=== PATIENT | male | born 1960 | race Caucasian/White ===

== ENCOUNTER 2017-01-22 05:55 | Emergency (ER) | payer BC, OTHER ==
[~2017-01-22] VITALS: Ht 177.8 cm; Wt 83.0 kg
[~2017-01-22 05:55] MED LIST: B/P MED; CHOLESTEROL MED; HIV MED; VALT500T PO
[2017-01-22 05:57] VITALS: BP 135/69; PULSE 68; RESP 16; TEMP 97.6; O2SAT 99
[2017-01-22] MEDS ORDERED: DICL75TA PO (06:20)
[2017-01-22] MEDS ORDERED: BACL10TA PO (06:20)
[2017-01-22] MEDS ORDERED: LIDO1PAD52 TOPICAL (06:20)
[2017-01-22] MEDS ORDERED: VALT500T PO (06:23)
[2017-01-22] MEDS ORDERED: ATOR10TA15 PO (06:23)
[2017-01-22] MEDS ORDERED: NAPR500T PO (06:23)
--- NOTE | 2017-01-22 06:24 | PD ---
HPI Chief Complaint: Back/ Neck Pain or Injury Time Seen by Provider: 06:05 Travel History International Travel<30 days: No Contact w/Intl Traveler<30days: No Traveled to known affect area: No History of Present Illness HPI 56-year-old male presents for evaluation of lower back pain. The patient reports chronic lower back pain secondary to herniated disc, muscle spasms. He has had this issue for 5-6 years. He has occasional muscle spasm flareups. He reports over the past 6 days he has been having muscle spasms in his lower back. He typically tries to treat this with physical therapy, at home TENS unit /[facility] administration. He went to physical therapy 3 days ago and his symptoms have persisted. He denies any trauma or heavy lifting. He denies any bowel or bladder incontinence, saddle anesthesia, radicular symptoms. He has no other complaints at this time. FOR[facility]LY [facility] Past Medical History Hypertension: Yes Triglycerides - High: Yes Tetanus Vaccination: < 5 Years Influenza Vaccination: No Social History Alcohol Use: Yes ([facility]) Tobacco Use: No Substance Use: No Allergies-Medications (Allergen,Severity, Reaction): Coded Allergies: Penicillin (Verified Allergy, Severe, 01/22/17) Reported Meds & Prescriptions Reported Meds & Active Scripts Active Reported [Hiv Med] DAILY [Cholesterol Med] DAILY [B/P Med] DAILY Valtrex (Valacyclovir HCl) 500 Mg Tab 500 Mg PO DAILY Review of Systems Except as stated in HPI: all other systems reviewed are Neg Physical Exam Narrative GENERAL: Well-developed well-nourished male in no acute distress sitting upright in hospital bed vital signs reviewed SKIN: Warm and dry. No rash no bruising or soft tissue swelling HEAD: Atraumatic. Normocephalic. EYES: Pupils equal and round. No scleral icterus. No injection or drainage. ENT: No nasal bleeding or discharge. Mucous membranes pink and moist. NECK: Trachea midline. No JVD. CARDIOVASCULAR: Regular rate and rhythm. No murmur appreciated. RESPIRATORY: No accessory muscle use. Clear to auscultation. Breath sounds equal bilaterally. GASTROINTESTINAL: Abdomen soft, non-tender, nondistended. Hepatic and splenic margins not palpable. MUSCULOSKELETAL: No obvious deformities. 5 out of 5 muscle strength in lower extremities bilaterally. There is no bony tenderness to palpation along the cervical thoracic or lumbar midline spine. No CVA tenderness. NEUROLOGICAL: Awake and alert. No obvious cranial nerve deficits. Motor grossly within normal limits. Normal speech. Data Data Last Documented VS Vital Signs Date Time Temp Pulse Resp B/P Pulse Ox O2 Delivery O2 Flow Rate FiO2 01/22/17 05:57 97.6 68 16 135/69 99 Room Air Orders Ketorolac Inj (Toradol Inj) (01/22/17 06:30) Orphenadrine Inj (Norflex Inj) (01/22/17 06:30) MDM Medical Decision Making Medical Screen Exam Complete: Yes Emergency Medical Condition: Yes Medical Record Reviewed: Yes Differential Diagnosis Muscle spasm, herniated nucleus pulposus, malignancy, aortic dissection, epidural abscess, osteomyelitis Narrative Course 56-year-old male with chronic lower back pain presents with an exacerbation of his chronic pain in this well muscle spasms. He has had success in the past with the administration of intramuscular muscle relaxants. He will be given a dose of Toradol and Norflex intramuscularly and discharged with baclofen, diclofenac as well as Lidoderm patches. Diagnosis Primary Impression: Back muscle spasm Additional Instructions: Medication as needed. Take diclofenac with meals. Do not drive or drink alcohol when taking baclofen. Follow up closely with primary care physician and return for any emergent medical conditions. Med/Other Pt SpecificInfo: Prescription(s) given Scripts Lidocaine Patch 12 HR 5 % Patch1 Patch TOPICAL DAILY PRN (PAIN) #1 BOX Ref 0 Remove patch after 12 hours Prov:Davidson Calabrese MD 01/22/[address] 75 Mg Tabdr75 Mg PO BID 10 Days Ref 0 Prov:Davidson Calabrese MD 01/22/17 Baclofen 10 Mg Tab10 Mg PO Q8HR PRN (MUSCLE SPASM) 10 Days Ref 0 Prov:Davidson Calabrese MD 01/22/17 Disposition: DISCHARGE HOME Condition: Stable Caleb Nixon Jan 22, 2017 06:23
[2017-01-22] MEDS ORDERED: ORPHENADRINE INJ 60 MG/2 ML AMP IM ONE (06:30)
[2017-01-22] MEDS ORDERED: KETOROLAC TROMETHAMINE 60 MG/2 ML (IM) VIAL IM ONE (06:30)
[2017-01-22] MEDS ORDERED: ONDANSETRON ODT 4 MG TAB PO ONE (07:00)
== END 2017-01-22 07:24 | disposition home or self-care (01) ==
LOC: NEPD 05:55
DX: M62.830 Muscle spasm of back (principal); I10 Essential (primary) hypertension; Z88.0 Allergy status to penicillin
CPT/HCPCS: 96372; 99284; J1885; J2360

== ENCOUNTER 2017-10-08 16:05 | Inpatient (IN) | payer OTHER ==
[2017-10-08] VITALS (10 sets, daily range): BP systolic 102–149; BP diastolic 69–86; PULSE 55–84; RESP 16–20; TEMP 97.6–98.8; O2SAT 97–100
[~2017-10-08 16:05] MED LIST changes: +ATOR10TA15 PO; +BACL10TA PO; -CHOLESTEROL MED; +DICL75TA PO; -HIV MED; +LIDO1PAD52 TOPICAL; +NAPR500T2 PO
[2017-10-08] MEDS ORDERED: HEPARIN SODIUM - IV 10,000 UNITS/10 ML VIAL IV PUSH STA (16:13)
[2017-10-08] MEDS ORDERED: MORPHINE SULFATE 2 MG/ML SYRINGE IV PUSH ONE (16:15)
[2017-10-08] MEDS ORDERED: SODIUM CHLOR 0.9% 1000 ML INJ 1,000 ML IV ONE (16:15)
[2017-10-08] MEDS ORDERED: CHOLESTEROL MED (16:16)
[2017-10-08] MEDS ORDERED: HIV MED PO (16:17)
[2017-10-08 16:33] LABS: AUTOMATED NEUTROPHIL # 6.5 TH/MM3 (1.8-7.7); BASOPHIL # 0.1 TH/MM3 (0-0.2); BASOPHIL % 0.7 % (0.0-2.0); EOSINOPHIL # 0.2 TH/MM3 (0-0.4); EOSINOPHIL % 1.7 % (0.0-4.0); HEMATOCRIT 42.9 % (39.0-51.0); HEMOGLOBIN 15.4 GM/DL (13.0-17.0); LYMPH % 39.9 % (9.0-44.0); LYMPHOCYTE # 5.3 TH/MM3 (1.0-4.8); MEAN CELL VOLUME 100.6 FL (80.0-100.0); MEAN CORPUSCULAR HEMOGLOBIN 36.1 PG (27.0-34.0); MEAN CORPUSCULAR HGB CONC 35.9 % (32.0-36.0); MEAN PLATELET VOLUME 7.8 FL (7.0-11.0); MONO % 8.6 % (0.0-8.0); MONOCYTE # 1.2 TH/MM3 (0-0.9); NEUT % 49.1 % (16.0-70.0); PLATELET COUNT 220 TH/MM3 (150-450); RED BLOOD COUNT 4.26 MIL/MM3 (4.50-5.90); RED CELL DISTRIBUTION WIDTH 13.4 % (11.6-17.2); WHITE BLOOD COUNT 13.3 TH/MM3 (4.0-11.0)
--- NOTE | 2017-10-08 16:33 | PD ---
HPI Chief Complaint: STEMI Alert Time Seen by Provider: 16:12 Travel History International Travel<30 days: No Contact w/Intl Traveler<30days: No Traveled to known affect area: No History of Present Illness HPI 57yo M with PMH of HTN and HIV on HAART CD4 count 900, VL undetectable presents to the ED with sudden onset chest pain. Pt was in laundry room when he had midsternal chest pain that started 30 minutes ago. Pain is severe, constant. Nonradiating. Pressure. +Diaphoresis and sob. Denies any fever, vomiting, abdominal pain, focal tingling. PFSH Past Medical History Hypertension: Yes Medical other: Yes (HIV) Triglycerides - High: Yes Past Surgical History Surgical History: No Previous Surgery Social History Alcohol Use: Yes (occ) Tobacco Use: No Substance Use: No Allergies-Medications (Allergen,Severity, Reaction): Coded Allergies: penicillin G (Unverified Allergy, Severe, 10/08/17) Reported Meds & Prescriptions Reported Meds & Active Scripts Active Reported [Biktarvy 50-200-25] Unknown Dose PO HS Enalapril (Enalapril Maleate) 2.5 Mg Tab Unknown Dose PO DAILY [Cholesterol Med] Atorvastatin (Atorvastatin Calcium) 10 Mg Tab 10 Mg PO HS Naproxen 500 Mg Tab 500 Mg PO BID Valtrex (Valacyclovir HCl) 500 Mg Tab 500 Mg PO DAILY Review of Systems Except as stated in HPI: all other systems reviewed are Neg Physical Exam Narrative GENERAL: 57yo M in moderate distress. SKIN: Focused skin assessment warm/dry. HEAD: Atraumatic. Normocephalic. EYES: Pupils equal and round. No scleral icterus. No injection or drainage. ENT: No nasal bleeding or discharge. Mucous membranes pink and moist. NECK: Trachea midline. No JVD. CARDIOVASCULAR: Regular rate and rhythm. No murmur appreciated. RESPIRATORY: No accessory muscle use. Clear to auscultation. Breath sounds equal bilaterally. GASTROINTESTINAL: Abdomen soft, non-tender, nondistended. MUSCULOSKELETAL: No obvious deformities. No clubbing. No cyanosis. No edema. NEUROLOGICAL: Awake and alert. No obvious cranial nerve deficits. Motor grossly within normal limits. Normal speech. PSYCHIATRIC: Appropriate mood and affect; insight and judgment normal. Data Data Last Documented VS Vital Signs Date Time Temp Pulse Resp B/P (MAP) Pulse Ox O2 Delivery O2 Flow Rate FiO2 10/08/17 16:53 10/08/17 16:35 55 20 98 Nasal Cannula 2.00 10/08/17 16:06 98.8 Orders Orders Troponin I (10/08/17 16:13) Ckmb (Isoenzyme) Profile (10/08/17 16:13) Complete Blood Count With Diff (10/08/17 16:13) I-Stat Profile (10/08/17 16:13) I-Stat Creatinine (10/08/17 16:13) Magnesium (Mg) (10/08/17 16:13) Prothrombin Time / Inr (Pt) (10/08/17 16:13) Act Partial Throm Time (Ptt) (10/08/17 16:13) Chest, Single Ap (10/08/17 16:13) Oxygen Administration (10/08/17 16:13) Iv Access Insert/Monitor (10/08/17 16:13) Heparin Inj (Heparin Inj) (10/08/17 16:13) Sodium Chlor 0.9% 1000 Ml Inj (Ns 1000 M (10/08/17 16:15) Morphine Inj (Morphine Inj) (10/08/17 16:15) Morphine Inj (Morphine Inj) (10/08/17 16:45) Morphine Inj (Morphine Inj) (10/08/17 16:39) Cardiac Catheterization (10/08/17 ) Heparin-Ns/Pf Flush Bag (Heparin-Ns/Pf F (10/08/17 16:57) Midazolam Inj (Versed Inj) (10/08/17 16:58) Fentanyl Inj (Fentanyl Inj) (10/08/17 16:58) CKMB (10/08/17 16:07) CKMB% (10/08/17 16:07) Lidocaine Pf 1% Inj (Xylocaine-Mpf 1% In (10/08/17 16:58) Nitroglycerin Inj (Nitroglycerin Inj) (10/08/17 16:58) Admit Order (Ed Use Only) (10/08/17 16:59) Labs Laboratory Tests Test 10/08/17 16:07 White Blood Count 13.3 TH/MM3 Red Blood Count 4.26 MIL/MM3 Hemoglobin 15.4 GM/DL Bedside Hemoglobin 14.6 G/DL Hematocrit 42.9 % Bedside Hematocrit 43.0 % Mean Corpuscular Volume 100.6 FL Mean Corpuscular Hemoglobin 36.1 PG Mean Corpuscular Hemoglobin Concent 35.9 % Red Cell Distribution Width 13.4 % Platelet Count 220 TH/MM3 Mean Platelet Volume 7.8 FL Neutrophils (%) (Auto) 49.1 % Lymphocytes (%) (Auto) 39.9 % Monocytes (%) (Auto) 8.6 % Eosinophils (%) (Auto) 1.7 % Basophils (%) (Auto) 0.7 % Neutrophils # (Auto) 6.5 TH/MM3 Lymphocytes # (Auto) 5.3 TH/MM3 Monocytes # (Auto) 1.2 TH/MM3 Eosinophils # (Auto) 0.2 TH/MM3 Basophils # (Auto) 0.1 TH/MM3 CBC Comment AUTO DIFF Differential Total Cells Counted 100 Neutrophils % (Manual) 58 % Lymphocytes % 37 % Monocytes % 5 % Neutrophils # (Manual) 7.7 TH/MM3 Differential Comment FINAL DIFF MANUAL Platelet Estimate NORMAL Platelet Morphology Comment NORMAL Tear Drop Cells 1+ Prothrombin Time 10.0 SEC Prothromb Time International Ratio 1.0 RATIO Activated Partial Thromboplast Time 24.4 SEC Bedside Sodium 139 MMOL/L Bedside Potassium 3.3 MMOL/L Bedside Chloride 106 MMOL/L Bedside Blood Urea Nitrogen 19 MG/DL Bedside Creatinine 1.2 MG/DL Bedside Glucose 112 MG/DL Magnesium Level 2.0 MG/DL Total Creatine Kinase 266 U/L Creatine Kinase MB 3.1 NG/ML Troponin I LESS THAN 0.02 NG/ML Triglycerides Level 370 MG/DL Cholesterol Level 175 MG/DL LDL Cholesterol 64 MG/DL HDL Cholesterol 37.3 MG/DL Cholesterol/HDL Ratio 4.69 RATIO [facility] Medical Decision Making Medical Screen Exam Complete: Yes Emergency Medical Condition: Yes Interpretation(s) EKG: Sinus bradycardia at 57bpm. Marked ST segment elevation II, III, aVF. ST elevation in III more than II, concerning for right sided TX. ST depression I, aVL, V2. Right sided EKG consistent with ST elevation in V4R. Differential Diagnosis STEMI Narrative Course 57yo M here with chest pain and EKG consistent with marked ST elevation in inferior leads with ST segment elevation in lead III more elevated than lead II. Right sided EKG was then completed and show elevation in right V4 consistent with right sided myocardial infarction. Pt was given aspirin, 1 sublingual nitro and zofran by EVAC. STEMI alert was called immediately upon arrival. Discussed with Dr. Carmen and he is on his way. Pt is still in severe pain so morphine 2mg given with NS IVF. Pt given heparin. It is now 16: [address] Carmen is here and asked me to order an additional morphine 5mg. Pt transferred to director of cardiac cath lab on monitor in stable conditions. Critical Care Narrative Aggregate critical care time was 35 minutes. Time to perform other separately billable procedures was not included in the critical care time. My time did not include minutes spent treating any other patients simultaneously or on activities that did not directly contribute to the patient's treatment. The services I provided to this patient were to treat and/or prevent clinically significant deterioration that could result in: cardiovascular collapse or . I provided critical care services requiring my management, as noted below: Chart data review, documentation time, medication orders and management, vital sign assessments/reviewing monitor data, ordering and reviewing lab tests, ordering and interpreting/reviewing x- rays and diagnostic studies, care of the patient and discussion of the patient with the admitting physicians. Diagnosis Primary Impression: STEMI (ST elevation myocardial infarction) Qualified Codes: I21.11 - ST elevation (STEMI) myocardial infarction involving right coronary artery Admitting Information Admitting Physician Requests: Admit Dominique Madrigal DO Oct 08, 2017 16:33
[2017-10-08] MEDS ORDERED: ENAL2.5T PO (16:39)
[2017-10-08] MEDS ORDERED: MORPHINE SULFATE 8 MG/ML INJ ONE (16:39)
--- NOTE | 2017-10-08 16:41 | RADRPT ---
EXAM DATE/TIME: 10/08/2017 16:20 [facility] COMPARISON: No previous studies available for comparison. INDICATIONS : Stemi alert. MEDICAL HISTORY : None. SURGICAL HISTORY : None. ENCOUNTER: Initial ACUITY: 1 day PAIN SCORE: 0/10 LOCATION: Bilateral chest FINDINGS: A single view of the chest demonstrates the lungs to be symmetrically hypoinflated but clear of acute infiltrate. No left-sided effusion. Right costophrenic angle is not included on this exam. Heart siz e is normal. Osseous structures are intact with some minimal spurring of the mid and lower dorsal spi ne. CONCLUSION: Hypoinflation with no acute cardiopulmonary process. Michael Cho MD on October 08, 2017 at 16:38 Board Certified Radiologist. This report was verified electronically.
[2017-10-08] MEDS ORDERED: MORPHINE SULFATE 8 MG/ML INJ IV PUSH ONE (16:45)
[2017-10-08 16:56] LABS: TROPONIN I LESS THAN 0.02 NG/ML (0.02-0.05)
[2017-10-08] MEDS ORDERED: HEPARIN-NS/PF FLUSH BAG 2,000 ML IV FLUSH ONE (16:57)
[2017-10-08] MEDS ORDERED: LIDOCAINE HCL 1% PF 30 ML VIAL ONE (16:58)
[2017-10-08] MEDS ORDERED: NITROGLYCERIN INJ 5 ML ONE (16:58)
[2017-10-08] MEDS ORDERED: MIDAZOLAM HCL 2 MG/2 ML VIAL ONE (16:58)
[2017-10-08 17:17] LABS: LYMPHOCYTES 37 % (9-44); MONOCYTES 5 % (0-8); NEUTROPHIL # MANUAL DIFF 7.7 TH/MM3 (1.8-7.7); POLYS (SEG NEUTROPHILS) 58 % (16-70)
--- NOTE | 2017-10-08 17:17 | MH ---
cc: Dashawn Carmen MD DATE OF ADMISSION: 10/08/2017 HISTORY OF PRESENT ILLNESS: This is a 57-year-old gentleman who is admitted to the hospital for chest pain. Chest pain began approximately 1 hour prior to admission and was a significant amount of chest discomfort. On arrival to the emergency department, he was noted to have significant ST segment depression in leads II, III, aVF, V4 through V6. We have been asked to see him for emergency cardiac catheterization and further evaluation. No prior history of heart disease has been present. PAST MEDICAL HISTORY: Significant for hypertension and hyperlipidemia as well as HIV infection. He apparently has done very well with his HIV, and his viral counts are negligible and CD4 counts are above 900. SOCIAL HISTORY: He is a smoker of 1 pack of cigarettes per day. ALLERGIES: PENICILLIN. REVIEW OF SYSTEMS: No symptoms of heart failure have been present. He denies any prior history of heart disease. MEDICATIONS: Include enalapril and atorvastatin. He is unsure what medications he takes for his HIV infection. PHYSICAL EXAMINATION: GENERAL: He is awake and alert. VITAL SIGNS: His blood pressure is 110/70, pulse is 60 and regular. NECK: There is no neck vein distention. LUNGS: Clear. CARDIOVASCULAR: Reveals a regular rate and rhythm with no significant murmur or gallop noted. ABDOMEN: Soft without tenderness or organomegaly. EXTREMITIES: Reveal no edema. ASSESSMENT: The patient has acute inferior infarction. We will plan emergency cardiac catheterization for further evaluation. MD CAR Pendleton/JAKE , 04:52 PM , 05:17 PM
[2017-10-08 17:18] LABS: TEARDROP RBCS 1+ (NORMAL)
[2017-10-08] MEDS ORDERED: CLOPIDOGREL 300 MG TAB ONE (17:24)
[2017-10-08] MEDS ORDERED: ATROPINE SULFATE 1 MG/ML VIAL IV PUSH PRN (17:30)
[2017-10-08] MEDS ORDERED: MISC INFORMATION XX ONE (17:30)
[2017-10-08] MEDS ORDERED: SODIUM CHLOR 0.9% 250 ML INJ 250 ML IV PRN (17:30)
[2017-10-08] MEDS ORDERED: BACITRACIN OINT 0.9 GM PKT TOP ONE (17:30)
[2017-10-08] MEDS ORDERED: ONDANSETRON HCL 4 MG/2 ML VIAL IV PUSH PRN (17:30)
[2017-10-08] MEDS ORDERED: LIDOCAINE HCL 1% 50 ML VIAL INFIL PRN (17:30)
[2017-10-08] MEDS ORDERED: LORazepam 2 MG/ML VIAL IV PUSH PRN (17:30)
--- NOTE | 2017-10-08 17:37 | CATHPROC ---
[facility] HIS Report Study Information Study Number Admission Scheduled Start Study Start [id number] Oct 08 2017 4:05PM 10/08/2017 Oct 08 2017 4:56PM [place] Service Cardiac Catheterization Admit Source Facility Department Emergency department [facility] - Utility Technician Physician and Clinical Staff Initial MD Carmen, Dashawn Yan RN, Jayda Ricks RN Recorder Jarod Ellis,RT(R) ScrCarolyn Hassan,RT(R) Procedures Performed Procedure Location (Site) Vessel Name Coronary Angiograms LCA Left Coronary Coronary Angiograms RCA Right Coronary Drug Eluting Inflatio RCA Mid Right Coronary L Heart Cath Wire insertion Fem Art (right) Femoral Art Equipment Time Cosmetology Educator Description Size Mfg Part Number Used/Scraped [id number] 17:10 [employer] WIRE, ASALemnis Lighting PROWATER 180CM 180CM Used *[id number] TRANSDUCER, TRUWAVE [id number] 17:03 [employer]entag * Used W/STOCKCOCK *[id number] *[id number] *[id number] *[id number] 17:03 MEDLINE IND[employer]RIES PACK, CCL CUSTOM * Used *[id number] 17:03 Mindie PACER PEN, SKIN DUAL W/ RULER * Used *[id number] 17:16 MEDTRONIC STENT, 3.0 12MM MALIA 3.0 12MM Used *[id number] 17:16 Easy-Point 30 BRYAN INDEFLATOR Used *[id number] 17:03 Easy-Point SHEATH, FR6.5 PRELUDE 11CM FR 6.5 038ACT Used *[id number] 17:03 Easy-Point WIRE, 3MMJ .035 180CM 180CM Used *[id number] 17:03 NAMIC MANIFOLD, 4 PORT * Used *[id number] 17:03 NYCOMED OMNIPAQUE, 350 MG, 100ML 100ML [id number] Used [id number] 17:03 TABOR MEDICAL BLANKET,WARM AIR CCL * Used *[id number] Equipment Model, Serial, Lot Number and Expiration Data Description Model Number Serial Number Lot Number Expiration Date STENT, 3.0 12MM MALIA [id number] 05-23-2019 History: Current Medications Medication Dosage/Unit Route Frequency Last Date/Time Taken ASA History: Allergies Allergy Reaction Penicillin penicillin G History: Risk Factors Family History of Hypertension Dyslipidemia Previous OH Previous Heart Failure Premature CAD Yes Yes No No No Prior Valve Prior PCI Prior CABG Surgery No No No Cerebrovascular Peripheral Artery Chronic Lung On Dialysis Diabetes Disease Disease Disease No No No No No History: Risk Factors Selection Items Current Smoker History: Symptoms/Diagnosis Selection Items Chest pain History: Stress Tests Stress or Imaging Studies Performed No History: Other Disease Selection Items HTN History: Other Current Smoker Method Packs a Day Years Used Pack Years Yes Cigarettes 1 40 40 Labs Hgb (g/dl) Hct (%) 11.60-17.00 35.00-51.00 14.6 43 Glucose (mg/dl) BUN (mg/dl) Creatinine (mg/dl) BUN:Creatinine (1:x) 74.00-106.00 7.00-18.00 0.50-1.30 10.00-20.00 112 15 1.2 12.5 Na (meq/l) K (meq/l) Cl (meq/l) 136.00-145.00 3.50-5.10 98.00-107.00 139 3.3 106 CPK-MB (ng/ML) 0.50-3.60 Not Drawn Medication Medication Total Dose (Bolus/Oral) Medication Total Dosage/Unit 1% XYLOCAINE 20 mL HEPARIN 1900 units PLAVIX 600 mg VERSED 2 mg Medications (Bolus/Oral) Medication Time Given Dosage/Unit Administered By Reason VERSED 10/08/2017 5:00:50 PM 2 mg Jayda Huitron 2 mg VERSED given in lab by Jayda Huitron RN in Left Antecubital via Peripheral IV. Ordered by Dashawn Adams. 1% XYLOCAINE 10/08/2017 5:03:02 PM 20 mL Jayda Huitron 20 mL 1% XYLOCAINE given in lab by Jayda Huitron RN in Right Groin via Subcutaneous. HEPARIN 10/08/2017 5:11:30 PM 1500 units Lg Yan RN 1500 units HEPARIN given in lab by Lg Yan RN in Left Antecubital via Peripheral IV. HEPARIN 10/08/2017 5:22:43 PM 400 units Lg Yan RN 400 units HEPARIN given in lab by Lg Yan RN in Left Antecubital via Peripheral IV. PLAVIX 10/08/2017 5:29:16 PM 600 mg Jayda Huitron 600 mg PLAVIX given in lab by Jayda Huitron, RN via Oral. Medication (Drip) Medication Time Given Dosage/Unit Concentration/Unit Diluent (ml) Solution IV Solutions 10/08/2017 4:56:37 PM 0 mL (IV) 500 NaCl .9 IV Solutions given in lab by Jayda Huitron, RN in Left Antecubital via Peripheral IV. Pump/Drip Lucien w = 20 ml/hr using NaCl .9. Initial Case Assessment Cardiovascular HR Rhythm NIBP Chest Pain 58 Irregular 142/90 8 Edema Present Skin color Skin None Normal Warm Dry Circulatory - Right Pulses Dorsalis Pedis Femoral 1 2 Scale (0,1,2,3,4,d) Circulatory - Left Pulses Dorsalis Pedis Femoral 1 2 Scale (0,1,2,3,4,d) Neurological State Oriented to time-place- Alert Moves all extremities person Respiration - General Respiration Rate SpO2 (%) O2 (lpm) (B/min) 9 98 2 Final Case Assessment Cardiovascular HR Rhythm NIBP Chest Pain 75 Sinus 110/60 0 Edema Present Skin color Skin None Normal Warm Dry Circulatory - Right Pulses Dorsalis Pedis Femoral 1 2 Scale (0,1,2,3,4,d) Circulatory - Left Pulses Dorsalis Pedis Femoral 1 2 Scale (0,1,2,3,4,d) Neurological State Oriented to time-place- Alert Moves all extremities person Respiration - General Respiration Rate SpO2 (%) O2 (lpm) (B/min) 25 93 0 Chronological Log Time Study Chronological Log 16:50:16 Patient arrived via Bed. 16:54:56 MD arrived. 16:56:20 Patient Name, D.O.B, / Armband Verified By R.N. 16:56:21 Consent signed by the physician and the patient and verified by the Utility Technician staff. 16:56:22 Pre-op and post- op instructions given; patient acknowledges understanding of instructions. 16:56:23 Verbal Stimulation=2 Physical Stimulation=2 Airway=2 Respiration=2 TOTAL=8. (0=absent, 1=li mited, 2=present) 16:56:27 Presedation assessment performed by Utility Technician RN. 16:56:29 Immediate Presedation assesment performed by physician. 16:56:30 Patient has been NPO for Less than 6Hrs. 16:56:30 Skin Breakdown- none per patient. 16:56:32 Patient Warmer Placed on the Table. 16:56:34 Disposable Defibrillator Pads Placed On Patient. 16:56:35 Maury Prominences Protected 16:56:36 A # 20 IV was noted in the Antecubital (right). Grade = 0 16:56:37 A # 20 IV was noted in the Antecubital (left). Grade = 0 IV Solutions given in lab by Jayda Huitron RN in Left Antecubital via Peripheral IV. Pump/Dr ip Flow = 20 ml/hr using 16:56:37 NaCl .9. 16:56:41 History and physical on the chart or being dictated. Assessment: Initial Case, HR=58 BPM, Rhythm=Irregular, IFPL=487/90 mmhg, Chest Pain=8, Edema=No ne, Color=Normal, Skin = Warm, Dry Right Pulses: Mike Ped=1, Femoral=2 16:56:42 Left Pulses: Mike Ped=1, Femoral=2 Neurological: State=Alert, Ox3, NARANJO Respiration: Resp=9 B/min, SpO2=98 %, O2=2 lpm Vitals capture started with the following parameters, Patient=Adult, Interval=5 min, Initial Pr rsclff=002 mmHg, 16:56:44 Deflation Rate=5 mmHg, Cuff placed on Right Ankle 16:57:51 HR=55 bpm, MIFS=310/90 mmhg, SpO2=98.0 %, Resp=8 B/min, Pain=8, Maria Alejandra=10, Valdez=2 16:59:49 Bilateral groins prepped with 2% chlorhexidine, and draped after a 3 minute waiting time. Time Out. Correct patient, correct procedure, correct physician, power injector not loaded with contrast with surgical 17:00:04 team present. Time Out Concurred by MD and individual staff in procedure. 17:00:10 Case Start 17:00:50 2 mg VERSED given in lab by Jayda Huitron, CHEL in Left Antecubital via Peripheral IV. Orde red by Dashawn Carmen. 17:01:13 Pressure channel 1 zeroed. 17:01:22 Reference ECG taken 17:02:22 HR=65 bpm, JLHL=045/88 mmhg, SpO2=98.0 %, Resp=11 B/min, Pain=8, Maria Alejandra=10, Valdez=2 17:03:02 20 mL 1% XYLOCAINE given in lab by Jayda Huitron RN in Right Groin via Subcutaneous. 17:04:01 Access site was Right Femoral Artery. 17:04:06 A SHEATH, FR6.5 PRELUDE 11CM FR 6.5 was advanced into the Fem Art (right) using the Percuta neous technique. 17:04:18 Activated Clotting Time Drawn A JL 4.0 INFINITI CATHETER FR 6 was advanced over a wire. OMNIPAQUE, 350 MG, 100ML 100ML was us ed for 17:05:08 injections. 17:06:08 The LCA was injected and visualized at various angles. OMNIPAQUE, 350 MG, 100ML 100ML used . Recorded Pressure: Ao, HR=66, Condition=Condition 1 17:06:21 (Aorta) Ao 113/66/88 17:07:23 HR=61 bpm, GHCO=954/88 mmhg, SpO2=94.0 %, Resp=14 B/min, Pain=8, Maria Alejandra=10, Valdez=2 17:08:09 ACT (Normal Range 90-180) = 196 17:08:14 Catheter was removed A JR 4.0 INFINITI CATHETER FR 6 was advanced over a wire. OMNIPAQUE, 350 MG, 100ML 100ML was us ed for 17:08:56 injections. 17:09:52 The RCA was injected and visualized at various angles. OMNIPAQUE, 350 MG, 100ML 100ML used . 17:10:50 Catheter was removed 17:11:30 1500 units HEPARIN given in lab by Lg Yan RN in Left Antecubital via Peripheral IV. A JR 4.0 GUIDE CATHETER FR 6 was advanced over a wire. OMNIPAQUE, 350 MG, 100ML 100ML was used for 17:12:02 injections. 17:12:24 HR=64 bpm, IUXB=187/80 mmhg, SpO2=88.0 %, Resp=14 B/min, Pain=8, Maria Alejandra=10, Valdez=2 17:12:39 A WIRE, Fashion One PROWATER 180CM 180CM was inserted via Fem Art (right). 17:13:15 Interventional wire has crossed the lesion A STENT, 3.0 12MM MALIA 3.0 12MM was advanced through a JR 4.0 GUIDE CATHETER FR 6 over a WIRE, ASATX 17:14:48 PROWATER 180CM 180CM. A STENT, 3.0 12MM MALIA 3.0 12MM was deployed using a 30 BRYAN INDEFLATOR at 16 atmospheres for 13 seconds in 17:15:23 the RCA Mid. 17:16:01 Delivery device removed 17:16:05 The RCA was injected and visualized at various angles. OMNIPAQUE, 350 MG, 100ML 100ML used . 17:16:21 Catheter was removed 17:16:25 Wire removed 17:17:25 HR=95 bpm, MCJY=696/65 mmhg, SpO2=95.0 %, Resp=14 B/min, Pain=8, Maria Alejandra=10, Valdez=2 17:18:14 Activated Clotting Time Drawn 17:22:02 ACT (Normal Range 90-180) = 209 17:22:20 HR=69 bpm, HCSZ=793/60 mmhg, SpO2=95.0 %, Resp=17 B/min, Pain=8, Maria Alejandra=10, Valdez=2 17:22:24 Case End 17:22:43 400 units HEPARIN given in lab by Lg Yan RN in Left Antecubital via Peripheral IV. 17:23:22 In the Fem Art (right) the SHEATH, FR6.5 PRELUDE 11CM FR 6.[address] by Carolyn Marrero RT(R). Assessment: Final Case, HR=75 BPM, Rhythm=Sinus, UIKH=596/60 mmhg, Chest Pain=0, Edema=None, Color=Normal, Skin = Warm, Dry Right Pulses: Mike Ped=1, Femoral=2 17:23:37 Left Pulses: Mike Ped=1, Femoral=2 Neurological: State=Alert, Ox3, NARANJO Respiration: Resp=25 B/min, SpO2=93 %, O2=0 lpm 17:26:19 Sterile dressing applied to site 17:26:20 No case complications noted. 17:26:21 Cine recording checked. 17:27:21 HR=73 bpm, YZEN=191/67 mmhg, SpO2=94.0 %, Resp=8 B/min, Pain=8, Maria Alejandra=10, Valdez=2 17:28:49 Implantable Device card placed in patient's chart. 17:28:52 A Left Heart Cath was performed. 17:29:16 600 mg PLAVIX given in lab by Jayda Huitron RN via Oral. 17:32:18 YBCM=154/76 mmhg, Pain=8, Maria Alejandra=10, Valdez=2 17:34:52 Vitals capture stopped. End Study - Contrast Media Used In Study Contrast Total Opened (mL) Total Used (mL) Total Wasted (mL) Omnipaque 150 70 80 End Study - Maximum Contrast Load Max Contrast Load (mL) 340.9 End Study - Radiation Exposure Fluoro Time (minutes) 2.2 End Study - Patient Disposition Complications Transferred To Interventional Outcome No Critical Care Bed successful
[2017-10-08] MEDS ORDERED: HEPARIN SODIUM - IV 10,000 UNITS/10 ML VIAL ONE (17:50)
--- NOTE | 2017-10-08 17:55 | MA ---
cc: Dashawn Carmen MD DATE: 10/08/2017 DESCRIPTION OF PROCEDURE: The patient was prepped and draped in the usual fashion. A 6 sheath was inserted percutaneously in the right femoral artery. Coronary angiography was done with Kaylee preformed catheters. RESULTS: Aortic pressure was 100/70. Left ventriculography was not done. CORONARY ARTERIOGRAPHY: Left main appeared to have an ostial 50% stenosis. The left anterior descending artery arose from left main. In its midportion, a 40-50% stenosis was present just at the takeoff of the first diagonal branch. The first diagonal branch also had a mild stenosis at its origin of approximately 30-40%. The distal artery was free from disease. Left circumflex artery demonstrated luminal irregularities, but no grade stenoses were seen. The right coronary was anatomically dominant, and a 99% stenosis was present in its proximal portion with JUAN 2 flow. Heparin was administered with an ACT of 209 seconds. An additional 400 units was administered. The artery was cannulated with an FR4 guide and a [employer] wire advanced into the distal right coronary. Primary stenting was accomplished with a 3.0 x 12 mm drug-eluting stent to 16 atmospheres with a very good cosmetic result. JUAN 3 flow was present following the procedure, and there was essentially zero residual. The equipment was withdrawn and the sheath was sutured into the place. It is anticipated an echocardiogram will be done for LV function. The patient left the room pain free and in good condition. MD CAR Pendleton/JAKE , 05:33 PM , 05:53 PM
[2017-10-08 18:45] LABS: CHOLESTEROL/ HDL RATIO 4.69 RATIO; HDL CHOLESTEROL 37.3 MG/DL (40.0-60.0)
[2017-10-08] MEDS ORDERED: ATROPINE SULFATE 1 MG/10 ML SYRINGE ONE (20:30)
[2017-10-08] MEDS ORDERED: BIKTARVY PO (22:21)
[2017-10-08] MEDS: ATORVASTATIN 80 MG TAB PO SCH (22:25)
[2017-10-08] MEDS ORDERED: ZOLPIDEM TARTRATE 5 MG TAB PO PRN (23:00)
--- NOTE | 2017-10-08 23:54 | EKG ---
Date Performed: 10/08/2017 Time Performed: 16:16:58 PTAGE: 57 years EKG: SINUS BRADYCARDIA ANTEROLATERAL MYOCARDIAL INFARCTION MARKED ST ELEVATION, CONSIDER INFERIO R INJURY ACUTE WI INTERPRETATION BASED ON A DEFAULT AGE OF 40 YEARS PREVIOUS TRACING : 10/08/2017 16.06 Since the previous tracing, no significant change not ed DOCTOR: Alok Calabrese Interpretating Date/Time 10/08/2017 23:54:14
--- NOTE | 2017-10-08 23:56 | EKG ---
Date Performed: 10/08/2017 Time Performed: 16:06:59 PTAGE: 57 years EKG: SINUS BRADYCARDIA MARKED ST ELEVATION, CONSIDER INFERIOR INJURY ACUTE IN INTERPRETATI ON BASED ON A DEFAULT AGE OF 40 YEARS PREVIOUS TRACING : 04/02/2008 09.58 Compared to previous tracing, ST elevations inferiorl y now noted DOCTOR: Alok Calabrese Interpretating Date/Time 10/08/2017 23:54:44
[2017-10-09] VITALS (27 sets, daily range): BP systolic 115–140; BP diastolic 66–81; PULSE 53–66; RESP 14–16; TEMP 97.8–98.7; O2SAT 96–98
[2017-10-09 05:34] LABS: AUTOMATED NEUTROPHIL # 7.1 TH/MM3 (1.8-7.7); BASOPHIL % 0.3 % (0.0-2.0); EOSINOPHIL # 0.1 TH/MM3 (0-0.4); EOSINOPHIL % 1.4 % (0.0-4.0); HEMATOCRIT 45.9 % (39.0-51.0); HEMOGLOBIN 15.7 GM/DL (13.0-17.0); LYMPH % 19.6 % (9.0-44.0); MEAN CELL VOLUME 101.2 FL (80.0-100.0); MEAN CORPUSCULAR HEMOGLOBIN 34.7 PG (27.0-34.0); MEAN CORPUSCULAR HGB CONC 34.3 % (32.0-36.0); MEAN PLATELET VOLUME 7.7 FL (7.0-11.0); MONO % 8.6 % (0.0-8.0); MONOCYTE # 0.9 TH/MM3 (0-0.9); NEUT % 70.1 % (16.0-70.0); PLATELET COUNT 186 TH/MM3 (150-450); RED BLOOD COUNT 4.53 MIL/MM3 (4.50-5.90); RED CELL DISTRIBUTION WIDTH 13.6 % (11.6-17.2); WHITE BLOOD COUNT 10.1 TH/MM3 (4.0-11.0)
[2017-10-09 06:17] LABS: CREATININE 1.01 MG/DL (0.60-1.30)
[2017-10-09 06:18] LABS: BICARBONATE 25.8 MEQ/L (21.0-32.0)
[2017-10-09] MEDS ORDERED: PILL SPLITTER OTHER PRN (06:30)
[2017-10-09] MEDS ORDERED: IOHEXOL 350 MG/ML 100 ML BTL (for Cath Lab) OTHER ONE (06:54)
--- NOTE | 2017-10-09 07:28 | PD.CARD.PN ---
Subjective Subjective Remarks Feels well. No chest pain. Objective Medications Current Medications Medications (Trade) Dose Ordered Sig/Emperatriz Route Start Time Stop Time Status Last Admin (Ativan Inj) 0.5 mg UNSCH PRN IV PUSH 10/08/17 17:30 10/09/17 17:29 (Atropine Inj) 0.5 mg UNSCH PRN IV PUSH 10/08/17 17:30 Sodium Chloride 250 ml @ 500 mls/hr ONCE PRN IV 10/08/17 17:30 10/09/17 17:29 (Zofran Inj) 4 mg Q4H PRN IV PUSH 10/08/17 17:30 (Xylocaine 1% Inj (50 ml)) 10 ml UNSCH PRN INFIL 10/08/17 17:30 10/09/17 17:29 (Lipitor) 80 mg HS PO 10/08/17 21:00 10/08/17 22:25 (Plavix) 75 mg DAILY PO 10/09/17 09:00 (Aspirin Chew) 81 mg DAILY PO 10/09/17 09:00 Patient Own Medication PT OWN MED: BIKTARVY 50/ 200/25... HS PO 10/09/17 21:00 Future hold (Ambien) 5 mg HS PRN PO 10/08/17 23:00 (Lopressor) 25 mg BID PO 10/09/17 09:00 (Pill Splitter) 1 ea UNSCH PRN OTHER 10/09/17 06:30 Vital Signs / I&O Vital Signs Date Time Temp Pulse Resp B/P (MAP) Pulse Ox O2 Delivery O2 Flow Rate FiO2 10/09/17 06:00 63 10/09/17 05:00 54 10/09/17 04:00 53 10/09/17 03:00 98.7 55 14 123/81 (95) 98 10/09/17 03:00 53 10/09/17 02:00 57 10/09/17 01:00 55 10/09/17 00:00 98.5 58 16 119/72 (88) 98 Arterial Line 10/09/17 00:00 55 10/08/17 23:00 59 10/08/17 22:00 72 10/08/17 21:00 64 10/08/17 20:00 84 10/08/17 19:00 70 10/08/17 19:00 98.7 64 16 146/86 (106) 97 149/81 (103) 10/08/17 17:45 73 10/08/17 17:45 97.6 66 20 144/76 (98) 100 10/08/17 16:53 10/08/17 16:35 55 20 114/73 (87) 98 Nasal Cannula 2.00 10/08/17 16:26 58 20 102/69 (80) 98 Nasal Cannula 2.00 10/08/17 16:21 57 20 112/74 (87) 99 Nasal Cannula 2.00 10/08/17 16:06 99 2.00 10/08/17 16:06 99 2.00 10/08/17 16:06 98.8 65 20 131/76 (94) 99 I/O 10/08/17 10/08/17 10/08/17 10/09/17 10/09/17 10/09/17 07:00 15:00 23:00 07:00 15:00 23:00 Intake Total 200 ml 960 ml Output Total 1950 ml Balance 200 ml -990 ml Intake Oral 960 ml IV Total 200 ml Output Urine Total 1950 ml # Bowel Movements 0 Physical Exam Lungs clear RRR no murmur Laboratory Laboratory Tests Test 10/08/17 16:07 10/09/17 03:53 White Blood Count 13.3 TH/MM3 10.1 TH/MM3 Red Blood Count 4.26 MIL/MM3 4.53 MIL/MM3 Hemoglobin 15.4 GM/DL 15.7 GM/DL Bedside Hemoglobin 14.6 G/DL Hematocrit 42.9 % 45.9 % Bedside Hematocrit 43.0 % Mean Corpuscular Volume 100.6 FL 101.2 FL Mean Corpuscular Hemoglobin 36.1 PG 34.7 PG Mean Corpuscular Hemoglobin Concent 35.9 % 34.3 % Red Cell Distribution Width 13.4 % 13.6 % Platelet Count 220 TH/MM3 186 TH/MM3 Mean Platelet Volume 7.8 FL 7.7 FL Neutrophils (%) (Auto) 49.1 % 70.1 % Lymphocytes (%) (Auto) 39.9 % 19.6 % Monocytes (%) (Auto) 8.6 % 8.6 % Eosinophils (%) (Auto) 1.7 % 1.4 % Basophils (%) (Auto) 0.7 % 0.3 % Neutrophils # (Auto) 6.5 TH/MM3 7.1 TH/MM3 Lymphocytes # (Auto) 5.3 TH/MM3 2.0 TH/MM3 Monocytes # (Auto) 1.2 TH/MM3 0.9 TH/MM3 Eosinophils # (Auto) 0.2 TH/MM3 0.1 TH/MM3 Basophils # (Auto) 0.1 TH/MM3 0.0 TH/MM3 CBC Comment AUTO DIFF DIFF FINAL Differential Total Cells Counted 100 Neutrophils % (Manual) 58 % Lymphocytes % 37 % Monocytes % 5 % Neutrophils # (Manual) 7.7 TH/MM3 Differential Comment FINAL DIFF MANUAL Platelet Estimate NORMAL Platelet Morphology Comment NORMAL Tear Drop Cells 1+ Prothrombin Time 10.0 SEC Prothromb Time International Ratio 1.0 RATIO Activated Partial Thromboplast Time 24.4 SEC Bedside Sodium 139 MMOL/L Bedside Potassium 3.3 MMOL/L Bedside Chloride 106 MMOL/L Bedside Blood Urea Nitrogen 19 MG/DL Bedside Creatinine 1.2 MG/DL Bedside Glucose 112 MG/DL Magnesium Level 2.0 MG/DL Total Creatine Kinase 266 U/L 1654 U/L Creatine Kinase MB 3.1 NG/ML 130.9 NG/ML Troponin I LESS THAN 0.02 NG/ML Triglycerides Level 370 MG/DL Cholesterol Level 175 MG/DL LDL Cholesterol 64 MG/DL HDL Cholesterol 37.3 MG/DL Cholesterol/HDL Ratio 4.69 RATIO Blood Urea Nitrogen 16 MG/DL Creatinine 1.01 MG/DL Random Glucose 92 MG/DL Calcium Level 9.0 MG/DL Sodium Level 142 MEQ/L Potassium Level 4.2 MEQ/L Chloride Level 108 MEQ/L Carbon Dioxide Level 25.8 MEQ/L Anion Gap 8 MEQ/L Estimat Glomerular Filtration Rate 77 ML/MIN Creatine Kinase MB % 7.9 % Imaging Last 24 hours Impressions Chest X-Ray 10/08/17 1613 Signed Impressions: Service Date/Time: Sunday, October 08, 2017 16:20 - CONCLUSION: Hypoinflation with no acute cardiopulmonary process. Michael Cho MD Assessment and Plan Assessment and Plan CK 1600. Will increase activity. Home today Dashawn Carmen MD Oct 09, 2017 07:28
[2017-10-09] MEDS: CLOPIDOGREL 75 MG TAB PO SCH (08:49)
[2017-10-09] MEDS: METOPROLOL TARTRATE 50 MG TAB PO SCH ×2 (08:49→21:30)
[2017-10-09] MEDS: ASPIRIN 81 MG CHEW TAB PO SCH (08:50)
[2017-10-09] MEDS ORDERED: METOPROLOL TARTRATE 50 MG TAB PO SCH (09:00)
--- NOTE | 2017-10-09 17:39 | ECHRPT ---
Indication: Myocardial Infarction CONCLUSIONS Normal left ventricular size. Wall thickness is normal. The left ventricular systolic function is normal with an estimated ejection fraction in the range of 50-55%. No regional wall motion abnormalities are present. There is trace tricuspid valve regurgitation. The estimated pulmonary arterial pressure is 29 mmHg. BP: / HR: Rhythm: Sinus MEASUREMENTS (Male / Female) Normal Values Technical Quality:Fair 2D ECHO LV Diastolic Diameter PLAX 5.2 cm 4.2 - 5.9 / 3.9 - 5.3 cm LV Systolic Diameter PLAX 4.4 cm IVS Diastolic Thickness 0.8 cm 0.6 - 1.0 / 0.6 - 0.9 cm LVPW Diastolic Thickness 0.7 cm 0.6 - 1.0 / 0.6 - 0.9 cm LV Relative Wall Thickness 0.3 RV Internal Dim ED PLAX 3.0 cm LVOT Diameter 2.2 cm LA Systolic Diameter LX 3.6 cm 3.0 - 4.0 / 2.7 - 3.8 cm M-MODE Aortic Root Diameter MM 3.7 cm LA Systolic Diameter MM 3.4 cm LA Ao Ratio MM 0.9 AV Cusp Separation MM 2.3 cm DOPPLER AV Peak Velocity 113.0 cm/s AV Peak Gradient 5.1 mmHg LVOT Peak Velocity 79.8 cm/s LVOT Peak Gradient 2.5 mmHg AV Area Cont Eq pk 2.7 cm MV Area PHT 2.8 cm Mitral E Point Velocity 43.7 cm/s Mitral A Point Velocity 47.6 cm/s Mitral E to A Ratio 0.9 LV E' Lateral Velocity 13.0 cm/s Mitral E to LV E' Lateral Ratio 3.4 LV E' Septal Velocity 8.0 cm/s Mitral E to LV E' Septal Ratio 5.5 TR Peak Velocity 219.0 cm/s TR Peak Gradient 19.2 mmHg Right Atrial Pressure 10.0 mmHg Pulmonary Artery Systolic Pressu 29.2 mmHg Right Ventricular Systolic Press 29.2 mmHg FINDINGS LEFT VENTRICLE Normal left ventricular size. Wall thickness is normal. The left ventricular systolic function is normal with an estimated ejection fraction in the range of 50-55%. No regional wall motion abnormalities are present. RIGHT VENTRICLE Normal right ventricular size and systolic function. LEFT ATRIUM The left atrial size is normal. RIGHT ATRIUM The right atrial size is normal. ATRIAL SEPTUM Normal atrial septal thickness without atrial level shunting by limited color doppler interrogation. AORTA The aortic root and proximal ascending aorta are normal in size on limited imaging. MITRAL VALVE Structurally normal mitral valve. Trace mitral valve regurgitation. AORTIC VALVE Trileaflet aortic valve. No aortic valve stenosis or regurgitation. TRICUSPID VALVE Structurally normal tricuspid valve. There is trace tricuspid valve regurgitation. The estimated pulmonary arterial pressure is 29 mmHg. PULMONARY VALVE No pulmonary valve regurgitation or stenosis. VESSELS The inferior vena cava is normal in size. PERICARDIUM No pericardial effusion. Eze Kyle MD (Electronically Signed) Final Date:09 October 2017 17:38
[2017-10-09] MEDS ORDERED: [UNRECOGNIZED DRUG - OTHER] PO SCH (21:00)
[2017-10-09] MEDS: NAPROXEN 500 MG TAB PO SCH (21:00)
[2017-10-09] MEDS: ATORVASTATIN 80 MG TAB PO SCH (21:30)
[2017-10-10] VITALS (10 sets, daily range): BP systolic 115–134; BP diastolic 66–74; PULSE 48–58; RESP 16; TEMP 98.2–98.7; O2SAT 95–100
[2017-10-10] MEDS ORDERED: METO-309 PO (07:47)
[2017-10-10] MEDS ORDERED: ATOR80TA45 PO (07:47)
[2017-10-10] MEDS ORDERED: ASPI81 PO (07:47)
[2017-10-10] MEDS ORDERED: PLAV75TA29 PO (07:47)
--- NOTE | 2017-10-10 07:50 | PD.CARD.PN ---
Subjective Subjective Remarks Feels well. No chest pain. Objective Medications Current Medications Medications (Trade) Dose Ordered Sig/Emperatriz Route Start Time Stop Time Status Last Admin (Atropine Inj) 0.5 mg UNSCH PRN IV PUSH 10/08/17 17:30 (Zofran Inj) 4 mg Q4H PRN IV PUSH 10/08/17 17:30 (Lipitor) 80 mg HS PO 10/08/17 21:00 10/09/17 21:30 (Plavix) 75 mg DAILY PO 10/09/17 09:00 10/09/17 08:49 (Aspirin Chew) 81 mg DAILY PO 10/09/17 09:00 10/09/17 08:50 Patient Own Medication PT OWN MED: BIKTARVY 50/ 200/25... HS PO 10/09/17 21:00 Future hold 10/09/17 21:31 (Ambien) 5 mg HS PRN PO 10/08/17 23:00 (Lopressor) 25 mg BID PO 10/09/17 09:00 10/09/17 21:30 (Pill Splitter) 1 ea UNSCH PRN OTHER 10/09/17 06:30 (Naprosyn) 500 mg Q12HR PO 10/09/17 21:00 Vital Signs / I&O Vital Signs Date Time Temp Pulse Resp B/P (MAP) Pulse Ox O2 Delivery O2 Flow Rate FiO2 10/10/17 06:25 53 10/10/17 05:00 52 10/10/17 04:00 48 10/10/17 03:00 49 10/10/17 03:00 98.7 52 16 115/66 (82) 95 10/10/17 02:00 52 10/10/17 01:00 56 10/10/17 00:00 54 10/09/17 23:00 55 10/09/17 23:00 98.0 58 14 118/72 (87) 96 10/09/17 22:00 56 10/09/17 21:00 60 10/09/17 20:00 56 10/09/17 19:00 98.5 57 14 120/72 (88) 97 10/09/17 19:00 62 10/09/17 18:00 60 10/09/17 17:00 61 10/09/17 16:00 53 10/09/17 15:15 97.9 58 16 120/66 (84) 97 10/09/17 15:00 60 10/09/17 14:00 58 10/09/17 13:00 66 10/09/17 12:00 58 10/09/17 11:39 98.3 56 16 115/66 (82) 97 10/09/17 11:00 57 10/09/17 10:00 62 10/09/17 09:00 60 10/09/17 08:00 63 I/O 10/09/17 10/09/17 10/09/17 10/10/17 10/10/17 10/10/17 07:00 15:00 23:00 07:00 15:00 23:00 Intake Total 960 ml 920 ml 400 ml Output Total 1950 ml 850 ml Balance -990 ml 70 ml 400 ml Intake Oral 960 ml 920 ml 400 ml Output Urine Total 1950 ml 850 ml # Voids 2 # Bowel Movements 0 0 Physical Exam Lungs clear RRR no murmur Assessment and Plan Assessment and Plan No arrhythmia noted. BP 115 systolic. Home today. Rx written for metoprolol 25 mg bid, plavix 75 mg daily. Continue atorvastatin and anti-viral drugs. Hold enalapril. Continue ASA 81 mg daily. Activity and diet discused. F/U office 1 week Dashawn Carmen MD Oct 10, 2017 07:50
[2017-10-10] MEDS: NAPROXEN 500 MG TAB PO SCH (08:13)
[2017-10-10] MEDS: METOPROLOL TARTRATE 50 MG TAB PO SCH (08:13)
[2017-10-10] MEDS: ASPIRIN 81 MG CHEW TAB PO SCH (08:14)
[2017-10-10] MEDS: CLOPIDOGREL 75 MG TAB PO SCH (08:14)
== END 2017-10-10 08:30 | disposition home or self-care (01) | DRG 246 ==
LOC: NEPE 16:05 → NEDA 17:00 → HCPC 17:45
PROVIDERS: ADMIT Internal Medicine Cardiovascular Disease; ATTEND Internal Medicine Cardiovascular Disease
PROC: 027034Z Dilation of Coronary Artery, One Artery with Drug-eluting Intraluminal Device, Percutaneous Approach (ICD-10-PCS; principal; 2017-10-08)
PROC: B2111ZZ Fluoroscopy of Multiple Coronary Arteries using Low Osmolar Contrast (ICD-10-PCS; 2017-10-08)
DX: I21.11 ST elevation (STEMI) myocardial infarction involving right coronary artery (principal); B20 Human immunodeficiency virus [HIV] disease; I10 Essential (primary) hypertension; E78.5 Hyperlipidemia, unspecified; I25.10 Atherosclerotic heart disease of native coronary artery without angina pectoris; F17.210 Nicotine dependence, cigarettes, uncomplicated; Z88.0 Allergy status to penicillin
CPT/HCPCS: 71045; 80048; 80061; 82550; 82552; 83735; 84484; 85002; 85007; 85025; 85027; 85610; 85730; 92941; 93005; 93306; 93454; 96361; 96374; 96375; 96376; 99152; 99153; C1769; C1874; C1887; C1893; J0461; J1644; J2250; J2270; J3010; J7030; Q9967